=== PATIENT | female | born 1965 | race Caucasian/White ===

== ENCOUNTER 2021-01-03 20:12 | Inpatient (IN) ==
[2021-01-03] MEDS ORDERED: ONDANSETRON INJ 2 MG/ML 2 ML VIAL IV STA (20:31)
[2021-01-03] MEDS ORDERED: KETOROLAC TROMETHAMINE 15 MG/ML VIAL IV STA (20:31)
[2021-01-03] MEDS ORDERED: SODIUM CHLORIDE 0.9% 1000ML 1,000 ML IV ONE (20:31)
[2021-01-03 20:54] LABS: Basophils # (auto) 0.02 K/uL (0-0.2); Basophils % (auto) 0.2 %; Hemoglobin 13.2 g/dL (12.0-16.0); Immature Granulocytes # (auto) 0.03 K/uL (0.00-0.02); Immature Granulocytes % (auto) 0.3 %; Lymphocytes # (auto) 3.54 K/uL (1.2-3.4); Lymphocytes % (auto) 33.8 %; Mean Corpuscular Hemoglobin 28.9 pg (25-34); Mean Corpuscular Volume 87.7 fL (80-100); Mean Platelet Volume 9.6 fL (7.4-10.4); Monocytes % (auto) 8.6 %; Neutrophils # (auto) 5.87 K/uL (1.4-6.5); Neutrophils % (auto) 56.1 %; Platelet Count 384 K/uL (130-400); RDW Coefficient of Variation 14.1 % (11.5-14.5); RDW Standard Deviation 45.3 fL (36.4-46.3); Red Blood Count 4.56 M/uL (4.2-5.4); White Blood Count 10.46 K/uL (4.8-10.8)
[2021-01-03 20:58] LABS: BUN Creatinine Ratio 16.8 (10-20); Calcium 9.4 mg/dl (8.5-10.1); Creatinine Clr Calc Pharmacy 63.7 ml/min; Est GFR (African American) 76.2 ml/min; Est GFR (Non-African American) 65.8 ml/min; Potassium 3.5 mmol/L (3.5-5.1)
[2021-01-03 21:07] LABS: Appearance Urine Cloudy (Clear); Bacteria Urine Automated Negative (Negative); Bilirubin Urine Negative (Negative); Blood Urine 3+ (Negative); Color Urine Red; Glucose Urine UA Negative (Negative); Ketones Urine Negative (Negative); Leukocyte Esterase Urine 3+ (Negative); Nitrite Urine Negative (Negative); Protein Urine 1+ (Negative); Specific Gravity Urine 1.012 (1.000-1.030); Urobilinogen Urine Negative (Negative); WBC Urine Automated >30 /hpf (0-5); pH Urine 6.5 (4.5-7.5)
[2021-01-03 21:22] LABS: Cast Urine Automated 0 /lpf (0-5); RBC Urine Automated >30 /hpf (0-4)
--- NOTE | 2021-01-03 21:29 | CT Scan Report ---
ABDOMEN AND PELVIS CT WITHOUT CONTRAST CT DOSE: 837.49 mGy.cm HISTORY: Acute left flank and left lower quadrant abdominal pain L flank and LLQ pain hx kidney ston es TECHNIQUE: Multiaxial CT images of the abdomen and pelvis were performed without contrast. A dose lo wering technique was utilized adhering to the principles of ALARA. COMPARISON STUDY: None. FINDINGS: Mild bibasilar atelectasis. No pneumatosis or pneumoperitoneum. The imaged inferior cardiac chambers are unremarkable. The unenhanced spleen, pancreas and adrenal glands are unremarkable. Chol ecystectomy. There are a few hypodensities of the liver suggestive of cysts measuring up to 10 mm. There are at least 6 nonobstructing calculi of the right kidney measuring up to 5 mm. No right-sided ureteral calculi or hydronephrosis. Numerous left-sided renal calculi measure up to 6 mm. Mild to mod erate left-sided hydroureteronephrosis secondary to an obstructing 6 x 4 x 6 mm calculus of the left ureter at the level of L3-L4. Urinary bladder and uterus are unremarkable. No abdominal aortic aneury sm or adenopathy. No bowel obstruction or bowel wall thickening. Colonic diverticulosis. No ascites or mesenteric infla mmation. No CT evidence of acute appendicitis. Unremarkable soft tissues. There is no acute fracture. IMPRESSION: 1. Mild to moderate left-sided hydroureteronephrosis secondary to an obstructing 6 mm calculus of the left ureter at the level of L3-L4. 2. Nonobstructing left greater than right nephrolithiasis. 3. Cholecystectomy. ACT 112: Negative or not required by law. The above report was generated using voice recognition software. It may contain grammatical, syntax o r spelling errors. Electronically signed by: Maury Kidd M.D. 01/03/2021 9:27 PM
[2021-01-03] MEDS ORDERED: TAMSULOSIN HCL 0.4 MG CAP PO ONE (22:11)
--- NOTE | 2021-01-03 22:43 | History & Physical Report ---
Date of Service January 03, 2021 Assessment & Plan (1) Hydronephrosis with renal calculous obstruction: Plan: hx recurrent urolithiasis No sepsis for now Situational hypertension GMF Flomax trial IVF Strain urine Urology consult Re: Left renal colic, obstructive uropathy N.p.o. until patient seen by Urology in a.m. anticipation of procedural intervention. Analgesia DVT prophylaxis per Lovenox subcu Full code Patient requesting updates from providers. Mr. Tato Villegas, contact #[phone]. Text document was generated using [employer]ore voice recognition software. It may contain grammatical or spelling errors. Kindly contact undersigned for clarification of any documentation item in question. History of Present Illness Chief Complaint: Left flank pain Primary Care Provider: Dr. Ewa Kevin [facility] ([facility]) History obtained from patient, family, and records. Medical history significant for recurrent urolithiasis, hyperlipidemia, IBS, narcolepsy as per records. Last confinement [facility] for obstructive right ureteral stone March 2020. Outpatient lithotripsy subsequently done following discharge. Kidney stones on the left on plain x-ray noted on outpatient follow-up with her urologist from [place] (Dr. Car) 2 months ago. Patient counseled to anticipate potential obstruction if the 2 stones got stuck together. Patient passing through town today with her family after leaving home at [place], [place] on their way to [place], [place] for a 4-day family vacation when she noted severe achy left flank pain reminiscent of kidney stone pain along with nausea, hematuria symptoms. No fever, no chills. 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 Allergies Allergy/AdvReac Type Severity Reaction Status Date / Time codeine Allergy Severe Hives Verified 01/03/21 20:38 Penicillins Allergy Severe Hives Verified 01/03/21 20:38 morphine AdvReac Intermediate sedation, Verified 01/03/21 22:45 nv oxycodone AdvReac Intermediate nv Verified 01/03/21 22:47 Home Medications Medication Instructions Recorded Confirmed Type calcium citrate 315 mg-vitamin D3 1 tab PO DAILY 01/03/21 01/03/21 History 5 mcg (200 unit) tablet (Calcium Citrate + D) cholecalciferol (vitamin D3) 25 25 mcg PO DAILY 01/03/21 01/03/21 History mcg (1,000 unit) tablet (Vitamin D3) cyanocobalamin (vitamin B-12) 1,000 mcg PO DAILY 01/03/21 01/03/21 History 1,000 mcg tablet (Vitamin B-12) potassium citrate 5 mEq (540 mg) 5 meq PO DAILY 01/03/21 01/03/21 History tablet,extended release pyridoxine (vitamin B6) 100 mg 100 mg PO DAILY 01/03/21 01/03/21 History tablet (Vitamin B-6) Past Med/Surg History Medical History (Updated 01/04/21 @ 01:33 by Hal Ponce) Kidney stone No pertinent family history Surgical History (Updated 01/04/21 @ 01:28 by Hal Ponce) No pertinent past surgical history Social History Smoking Status: Never smoker Hx Alcohol Use: No Hx Substance Use: No Preferred Language: Faroese Communication Ability: Effective Dosier Operator Required: No Beliefs That Will Affect Care: None Current Living Situation: Spouse and Family Other Information That Helps Us Care for You: No Feels Safe at Home: Yes Safety Concerns: Feels Safe At This Time Assistive Devices: Glasses Review of Systems Review of Systems: As per HPI, all 10 systems reviewed, all other ROS negative Physical Exam Physical Exam: GENERAL: uncomfortable, anxious, no respiratory distress SKIN: Normal color, warm HEENT: [place]pect[place]led, [place] palpebral conjunctivae, no ptosis, dry buccal mucosa NECK : Supple, no tenderness CHEST : CTA, no tenderness HEART : RRR, no obvious murmurs ABDOMEN: Some distention, nontender BACK : Minimal left flank tenderness EXTREMITIES : Minimal LE swelling, no LE tenderness, no other conspicuous deformities noted NEUROLOGIC : Coherent, no facial asymmetry, no other gross focality Results & Data Results & Data ([facility]) Vital Signs (Past 12 Hours) Vital Signs Temp Pulse Resp BP Pulse Ox 01/03/21 22:00 76 18 137/75 95 01/03/21 21:30 74 17 121/69 94 01/03/21 21:00 127/78 01/03/21 20:30 82 28 H 160/79 H 96 01/03/21 20:14 36.7 C 88 18 145/70 H 97 Laboratory Results Laboratory Results WBC 10.46 K/uL (4.8-10.8) 01/03/21 20:37 RBC 4.56 M/uL (4.2-5.4) 01/03/21 20:37 Hgb 13.2 g/dL (12.0-16.0) 01/03/21 20:37 Hct 40.0 % (37-47) 01/03/21 20:37 MCV 87.7 fL (80-100) 01/03/21 20:37 MCH 28.9 pg (25-34) 01/03/21 20:37 MCHC 33.0 g/dL (32-36) 01/03/21 20:37 RDW Std Deviation 45.3 fL (36.4-46.3) 01/03/21 20:37 RDW Coeff of Teri 14.1 % (11.5-14.5) 01/03/21 20:37 Plt Count 384 K/uL (130-400) 01/03/21 20:37 MPV 9.6 fL (7.4-10.4) 01/03/21 20:37 Immature Gran % (Auto) 0.3 % 01/03/21 20:37 Neut % (Auto) 56.1 % 01/03/21 20:37 Lymph % (Auto) 33.8 % 01/03/21 20:37 [place] % (Auto) 8.6 % 01/03/21 20:37 Eos % (Auto) 1.0 % 01/03/21 20:37 Baso % (Auto) 0.2 % 01/03/21 20:37 Neut # (Auto) 5.87 K/uL (1.4-6.5) 01/03/21 20:37 Lymph # (Auto) 3.54 K/uL (1.2-3.4) H 01/03/21 20:37 [place] # (Auto) 0.90 K/uL (0.11-0.59) H 01/03/21 20:37 Eos # (Auto) 0.10 K/uL (0-0.5) 01/03/21 20:37 Baso # (Auto) 0.02 K/uL (0-0.2) 01/03/21 20:37 Immature Gran # (Auto) 0.03 K/uL (0.00-0.02) H 01/03/21 20:37 Sodium 140 mmol/L (136-145) 01/03/21 20:37 Potassium 3.5 mmol/L (3.5-5.1) 01/03/21 20:37 Chloride 106 mmol/L (98-107) 01/03/21 20:37 Carbon Dioxide 29 mmol/L (21-32) 01/03/21 20:37 Anion Gap 5.0 (3-11) 01/03/21 20:37 BUN 16 mg/dl (7-18) 01/03/21 20:37 Creatinine 0.97 mg/dl (0.6-1.2) 01/03/21 20:37 Est Cr Clr Drug Dosing 63.7 ml/min 01/03/21 20:37 Est GFR ( Amer) 76.2 ml/min 01/03/21 20:37 Est GFR (Non-Af Amer) 65.8 ml/min 01/03/21 20:37 BUN/Creatinine Ratio 16.8 (10-20) 01/03/21 20:37 Glucose 107 mg/dl (70-99) H 01/03/21 20:37 Calcium 9.4 mg/dl (8.5-10.1) 01/03/21 20:37 Urine Color Red 01/03/21 20:40 Urine Appearance Cloudy (Clear) A 01/03/21 20:40 Urine pH 6.5 (4.5-7.5) 01/03/21 20:40 Ur Specific [place] 1.012 (1.000-1.030) 01/03/21 20:40 Urine Protein 1+ (Negative) H 01/03/21 20:40 Urine Glucose (UA) Negative (Negative) 01/03/21 20:40 Urine Ketones Negative (Negative) 01/03/21 20:40 Urine Blood 3+ (Negative) H 01/03/21 20:40 Urine Nitrite Negative (Negative) 01/03/21 20:40 Urine Bilirubin Negative (Negative) 01/03/21 20:40 Urine Urobilinogen Negative (Negative) 01/03/21 20:40 Ur Leukocyte Esterase 3+ (Negative) H 01/03/21 20:40 Urine WBC (Auto) >30 /hpf (0-5) H 01/03/21 20:40 Urine RBC (Auto) >30 /hpf (0-4) H 01/03/21 20:40 U Hyaline Cast (Auto) 0 /lpf (0-5) 01/03/21 20:40 U Epithel Cells (Auto) 10-20 /lpf (0-5) H 01/03/21 20:40 Urine Bacteria (Auto) Negative (Negative) 01/03/21 20:40 Ur Renal Epithelial Cell Not Reportable 01/03/21 20:40 Urine Yeast Not Reportable 01/03/21 20:40 COVID-19 Eval Order Covid19 at [facility] 01/03/21 22:07 Impressions Abdomen/Pelvis CT 01/03/21 20:[address] WITHOUT CONTRAST CT DOSE: 837.49 mGy.cm HISTORY: Acute left flank and left lower quadrant abdominal pain L flank and LLQ pain hx kidney stones TECHNIQUE: Multiaxial CT images of the abdomen and pelvis were performed without contrast. A dose lowering technique was utilized adhering to the principles of ALARA. COMPARISON STUDY: None. FINDINGS: Mild bibasilar atelectasis. No pneumatosis or pneumoperitoneum. The imaged inferior cardiac chambers are unremarkable. The unenhanced spleen, pancreas and adrenal glands are unremarkable. Cholecystectomy. There are a few hypodensities of the liver suggestive of cysts measuring up to 10 mm. There are at least 6 nonobstructing calculi of the right kidney measuring up to 5 mm. No right-sided ureteral calculi or hydronephrosis. Numerous left-sided renal calculi measure up to 6 mm. Mild to moderate left-sided hydroureteronephrosis secondary to an obstructing 6 x 4 x 6 mm calculus of the left ureter at the level of L3-L4. Urinary bladder and uterus are unremarkable. No abdominal aortic aneurysm or adenopathy. No bowel obstruction or bowel wall thickening. Colonic diverticulosis. No ascites or mesenteric inflammation. No CT evidence of acute appendicitis. Unremarkable soft tissues. There is no acute fracture. IMPRESSION: 1. Mild to moderate left-sided hydroureteronephrosis secondary to an obstructing 6 mm calculus of the left ureter at the level of L3-L4. 2. Nonobstructing left greater than right nephrolithiasis. 3. Cholecystectomy. ACT 112: Negative or not required by law. The above report was generated using voice recognition software. It may contain grammatical, syntax or spelling errors. Electronically signed by: Maury Kidd M.D. 01/03/2021 9:27 PM
[2021-01-03] MEDS ORDERED: PROMETHAZINE HCL 12.5 MG in SODIUM CHLORIDE 0.9% 50 ML IV PRN (22:46)
[2021-01-03] MEDS ORDERED: ACETAMINOPHEN 325 MG TAB PO PRN (22:46)
[2021-01-03] MEDS ORDERED: traMADol HCL 50 MG TABLET PO PRN (22:46)
[2021-01-03] MEDS ORDERED: HYDROmorphone INJ 0.5 MG/0.5 ML SYR IV PRN (22:46)
[2021-01-03 22:47] LABS: Bilirubin Direct 0.2 mg/dl (0-0.2); Bilirubin,Total 1.2 mg/dl (0.2-1); Magnesium 2.3 mg/dl (1.8-2.4); Total Protein 7.6 gm/dl (6.4-8.2)
[2021-01-04] MEDS ORDERED: LORazepam 0.25 MG/0.5 ML VIAL IV PRN (00:48)
--- NOTE | 2021-01-04 01:31 | Emergency Department Note ---
History of Present Illness General Chief Complaint: Kidney Stone Stated Complaint: KIDNEY STONES-ABD PAIN Time Seen by Provider: 01/03/21 20:24 History of Present Illness Provider Complaint: flank pain Onset (ago): 1 day(s) Pain Consistency: constant Location: L flank Radiation: LLQ Severity: severe Maximum Pain Intensity: 10 Current Pain Intensity: 9 Quality: + stabbing and + sharp Relieved By: + nothing Exacerbated By: + nothing Context: + history of similar episodes (History of kidney stones) Associated Symptoms: + nausea, + hematuria and + back pain; no vomiting, no diarrhea, no fever, no chills, no constipation, no dysuria, no hematemesis, no hematochezia, no melena, no anorexia, no syncope, no headache, no neck pain, no chest pain, no weakness, no breathing difficulty and no numbness Related Data Patient Confirmed : No Home Medications Medication Instructions Recorded Confirmed Type calcium citrate 315 mg-vitamin D3 1 tab PO DAILY 01/03/21 01/03/21 History 5 mcg (200 unit) tablet (Calcium Citrate + D) cholecalciferol (vitamin D3) 25 25 mcg PO DAILY 01/03/21 01/03/21 History mcg (1,000 unit) tablet (Vitamin D3) cyanocobalamin (vitamin B-12) 1,000 mcg PO DAILY 01/03/21 01/03/21 History 1,000 mcg tablet (Vitamin B-12) potassium citrate 5 mEq (540 mg) 5 meq PO DAILY 01/03/21 01/03/21 History tablet,extended release pyridoxine (vitamin B6) 100 mg 100 mg PO DAILY 01/03/21 01/03/21 History tablet (Vitamin B-6) Allergies Allergy/AdvReac Type Severity Reaction Status Date / Time codeine Allergy Severe Hives Verified 01/03/21 20:38 Penicillins Allergy Severe Hives Verified 01/03/21 20:38 morphine AdvReac Intermediate sedation, Verified 01/03/21 22:45 nv oxycodone AdvReac Intermediate nv Verified 01/03/21 22:47 Past Med/Surg History Medical History (Updated 01/04/21 @ 01:33 by Hal Ponce) Kidney stone No pertinent family history Surgical History (Updated 01/04/21 @ 01:28 by Hal Ponce) No pertinent past surgical history Social History Smoking Status: Never smoker Hx Alcohol Use: No Hx Substance Use: No Preferred Language: Croatian Communication Ability: Effective 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: No Beliefs That Will Affect Care: None Current Living Situation: Spouse and Family Other Information That Helps Us Care for You: No Feels Safe at Home: Yes Safety Concerns: Feels Safe At This Time Assistive Devices: Glasses Review of Systems A total of 10 systems reviewed and were otherwise negative Physical Exam Vital Signs: Vital Signs - 24 hr 01/03/21 20:14 01/03/21 20:30 01/03/21 21:00 Temperature 36.7 C Temperature Source Temporal Artery Sc an Pulse Rate 88 82 Pulse Rate from Sp O2 Sensor 81 Pulse Rhythm Regular Respiratory Rate 18 28 H Respiratory Effort / Characteristics Non-Labored Sponta neous Respiratory Depth Normal Respiratory Patter n Regular Blood Pressure 145/70 H 160/79 H 127/78 Blood Pressure Paige n 95 106 94 Pulse Oximetry 97 96 Oxygen Delivery Me thod Room Air Sepsis Recent Feve r Within 48 Hours No Sepsis New/Unexpla ined Change in Men poonam Status No Sepsis Action Take n by Nursing No Action Required 01/03/21 21:30 01/03/21 22:00 01/03/21 22:30 Temperature Temperature Source Pulse Rate 74 76 70 Pulse Rate from Sp O2 Sensor 73 76 86 Pulse Rhythm Respiratory Rate 17 18 21 Respiratory Effort / Characteristics Respiratory Depth Respiratory Patter n Blood Pressure 121/69 137/75 129/94 Blood Pressure Paige n 86 95 105 Pulse Oximetry 94 95 95 Oxygen Delivery Me thod Sepsis Recent Feve r Within 48 Hours Sepsis New/Unexpla ined Change in Men poonam Status Sepsis Action Take n by Nursing 01/03/21 23:00 01/03/21 23:30 Temperature Temperature Source Pulse Rate 82 83 Pulse Rate from Sp O2 Sensor Pulse Rhythm Respiratory Rate 22 19 Respiratory Effort / Characteristics Respiratory Depth Respiratory Patter n Blood Pressure 129/72 123/69 Blood Pressure Paige n 91 87 Pulse Oximetry Oxygen Delivery Me thod Sepsis Recent Feve r Within 48 Hours Sepsis New/Unexpla ined Change in Men poonam Status Sepsis Action Take n by Nursing Physical Exam: Physical Exam GENERAL: She is oriented to person, place, and time. She appears well-developed and well-nourished. She does not appear distressed. HENT: Exam performed. -Head: Normocephalic and atraumatic. -Right Ear: External ear normal. No mastoid tenderness. -Left Ear: External ear normal. No mastoid tenderness. -Mouth/Throat: The oropharynx is clear and moist. No trismus in the jaw. No dental abscesses or uvula swelling. No oropharyngeal exudate or tonsillar abscesses. EYES: Conjunctivae and EOM are normal. Pupils are equal, round, and reactive to light. Right eye exhibits no discharge. Left eye exhibits no discharge. No scleral icterus. NECK: Normal range of motion. Neck supple. No JVD present. No spinous process tenderness present. No carotid bruit present. No rigidity. No tracheal deviation and normal range of motion present. No Brudzinski's sign and no Kernig's sign noted. CV: Normal rate, regular rhythm, normal heart sounds and intact distal pulses. There is no peripheral edema. Palpable radial pulses bue. PULM/CHEST: Effort normal and breath sounds normal. No respiratory distress. No stridor. She has no wheezes. She has no rales. -Chest Wall: She exhibits no tenderness. ABD: The abdomen is soft. Bowel sounds are normal. She has no distension. No mass is present. There is tenderness to palpation left lower quadrant. There is no rebound, no guarding, no Eddy's sign and no tenderness at McBurney's point. Rovsig negative. Left-sided CVA tenderness. MUSC/SKEL: Normal range of motion. There is no peripheral edema, tenderness or deformity. LYMPH: No cervical adenopathy. NEURO: She is alert and oriented to person, place, and time. She has normal strength. No cranial nerve deficit or sensory deficit. Coordination and gait normal. GCS eye subscore is 4. GCS verbal subscore is 5. GCS motor subscore is 6. Cerebellar tests wnl. SKIN: Skin is warm and dry. She is not diaphoretic. PSYCH: She has a normal mood and affect. Behavior is normal. Judgment and thought content normal. Course Course 2023: The patient was evaluated in room C12. A complete history and physical exam was performed Cardiac monitoring: An order was placed for continuous cardiac monitoring. The monitor shows a rate of 80 with sinus rhythm 2200: Vital signs stable. Labs showed no leukocytosis. No signs of urinary tract infection. 6 mm kidney stone with hydroureteronephrosis on the left. Patient states she wants to be admitted for pain control and urology evaluation. Patient states she is from out of [facility] and on her way to [place]. [facility]. Administered Medications Discontinued Medications Sodium Chloride (Nss 1000ml) 1,000 mls @ 999 mls/hr IV .Q1H1M ONE Stop: 01/03/21 21:31 Last Infusion: 01/03/21 22:45 Dose: 0 mls/hr Documented by: [id number] Admin: 01/03/21 20:49 Dose: 999 mls/hr Documented by: [id number] Ketorolac Tromethamine (Ketorolac Tromethamine 15 Mg/Ml Vial) 15 mg IV NOW STA Stop: 01/03/21 20:32 Last Admin: 01/03/21 20:50 Dose: 15 mg Documented by: [id number] Ondansetron HCl (Ondansetron Inj 2 Mg/Ml 2 Ml Vial) 4 mg IV NOW STA Stop: 01/03/21 20:32 Last Admin: 01/03/21 20:49 Dose: 4 mg Documented by: [id number] Tamsulosin HCl (Tamsulosin Hcl 0.4 Mg Cap) 0.4 mg PO NOW ONE Stop: 01/03/21 22:12 Last Admin: 01/03/21 22:43 Dose: 0.4 mg Documented by: [id number] Medical Decision Making Laboratory Data Result diagrams: 01/03/21 20:37 01/03/21 20:37 Lab Results 01/03/21 01/03/21 01/03/21 Range/Units 20:37 20:37 20:37 WBC 10.46 (4.8-10.8) K/uL RBC 4.56 (4.2-5.4) M/uL Hgb 13.2 (12.0-16.0) g/dL Hct 40.0 (37-47) % MCV 87.7 (80-100) fL MCH 28.9 (25-34) pg MCHC 33.0 (32-36) g/dL RDW Std Deviation 45.3 (36.4-46.3) fL RDW Coeff of Teri 14.1 (11.5-14.5) % Plt Count 384 (130-400) K/uL MPV 9.6 (7.4-10.4) fL Immature Gran % (Auto) 0.3 % Neut % (Auto) 56.1 % Lymph % (Auto) 33.8 % Coke % (Auto) 8.6 % Eos % (Auto) 1.0 % Baso % (Auto) 0.2 % Neut # (Auto) 5.87 (1.4-6.5) K/uL Lymph # (Auto) 3.54 H (1.2-3.4) K/uL Coke # (Auto) 0.90 H (0.11-0.59) K/uL Eos # (Auto) 0.10 (0-0.5) K/uL Baso # (Auto) 0.02 (0-0.2) K/uL Immature Gran # (Auto) 0.03 H (0.00-0.02) K/uL Sodium 140 (136-145) mmol/L Potassium 3.5 (3.5-5.1) mmol/L Chloride 106 (98-107) mmol/L Carbon Dioxide 29 (21-32) mmol/L Anion Gap 5.0 (3-11) BUN 16 (7-18) mg/dl Creatinine 0.97 (0.6-1.2) mg/dl Est Cr Clr Drug Dosing 63.7 ml/min Est GFR ( Amer) 76.2 ml/min Est GFR (Non-Af Amer) 65.8 ml/min BUN/Creatinine Ratio 16.8 (10-20) Glucose 107 H (70-99) mg/dl Calcium 9.4 (8.5-10.1) mg/dl Magnesium 2.3 (1.8-2.4) mg/dl Total Bilirubin 1.2 H (0.2-1) mg/dl Direct Bilirubin 0.2 (0-0.2) mg/dl AST 29 (15-37) U/L ALT 42 (12-78) U/L Alkaline Phosphatase 106 (45-117) U/L Total Protein 7.6 (6.4-8.2) gm/dl Albumin 4.0 (3.4-5.0) gm/dl Urine Color Urine Appearance (Clear) Urine pH (4.5-7.5) Ur Specific [place] (1.000-1.030) Urine Protein (Negative) Urine Glucose (UA) (Negative) Urine Ketones (Negative) Urine Blood (Negative) Urine Nitrite (Negative) Urine Bilirubin (Negative) Urine Urobilinogen (Negative) Ur Leukocyte Esterase (Negative) Urine WBC (Auto) (0-5) /hpf Urine RBC (Auto) (0-4) /hpf U Hyaline Cast (Auto) (0-5) /lpf U Epithel Cells (Auto) (0-5) /lpf Urine Bacteria (Auto) (Negative) Ur Renal Epithelial Cell Urine Yeast COVID-19 Eval Order SARS-CoV-2 (PCR) (Negative) 01/03/21 01/03/21 01/03/21 Range/Units 20:40 22:07 22:07 WBC (4.8-10.8) K/uL RBC (4.2-5.4) M/uL Hgb (12.0-16.0) g/dL Hct (37-47) % MCV (80-100) fL MCH (25-34) pg MCHC (32-36) g/dL RDW Std Deviation (36.4-46.3) fL RDW Coeff of Teri (11.5-14.5) % Plt Count (130-400) K/uL MPV (7.4-10.4) fL Immature Gran % (Auto) % Neut % (Auto) % Lymph % (Auto) % Coke % (Auto) % Eos % (Auto) % Baso % (Auto) % Neut # (Auto) (1.4-6.5) K/uL Lymph # (Auto) (1.2-3.4) K/uL Coke # (Auto) (0.11-0.59) K/uL Eos # (Auto) (0-0.5) K/uL Baso # (Auto) (0-0.2) K/uL Immature Gran # (Auto) (0.00-0.02) K/uL Sodium (136-145) mmol/L Potassium (3.5-5.1) mmol/L Chloride (98-107) mmol/L Carbon Dioxide (21-32) mmol/L Anion Gap (3-11) BUN (7-18) mg/dl Creatinine (0.6-1.2) mg/dl Est Cr Clr Drug Dosing ml/min Est GFR ( Amer) ml/min Est GFR (Non-Af Amer) ml/min BUN/Creatinine Ratio (10-20) Glucose (70-99) mg/dl Calcium (8.5-10.1) mg/dl Magnesium (1.8-2.4) mg/dl Total Bilirubin (0.2-1) mg/dl Direct Bilirubin (0-0.2) mg/dl AST (15-37) U/L ALT (12-78) U/L Alkaline Phosphatase (45-117) U/L Total Protein (6.4-8.2) gm/dl Albumin (3.4-5.0) gm/dl Urine Color Red Urine Appearance Cloudy A (Clear) Urine pH 6.5 (4.5-7.5) Ur Specific [place] 1.012 (1.000-1.030) Urine Protein 1+ H (Negative) Urine Glucose (UA) Negative (Negative) Urine Ketones Negative (Negative) Urine Blood 3+ H (Negative) Urine Nitrite Negative (Negative) Urine Bilirubin Negative (Negative) Urine Urobilinogen Negative (Negative) Ur Leukocyte Esterase 3+ H (Negative) Urine WBC (Auto) >30 H (0-5) /hpf Urine RBC (Auto) >30 H (0-4) /hpf U Hyaline Cast (Auto) 0 (0-5) /lpf U Epithel Cells (Auto) 10-20 H (0-5) /lpf Urine Bacteria (Auto) Negative (Negative) Ur Renal Epithelial Cell Not Reportable Urine Yeast Not Reportable COVID-19 Eval Order Covid19 at [facility] SARS-CoV-2 (PCR) NEGATIVE (Negative) Imaging Data Radiologist's Impression: Abdomen/Pelvis CT 01/03/21 20:[address] WITHOUT CONTRAST CT DOSE: 837.49 mGy.cm HISTORY: Acute left flank and left lower quadrant abdominal pain L flank and LLQ pain hx kidney stones TECHNIQUE: Multiaxial CT images of the abdomen and pelvis were performed without contrast. A dose lowering technique was utilized adhering to the principles of ALARA. COMPARISON STUDY: None. FINDINGS: Mild bibasilar atelectasis. No pneumatosis or pneumoperitoneum. The imaged inferior cardiac chambers are unremarkable. The unenhanced spleen, pancre as and adrenal glands are unremarkable. Cholecystectomy. There are a few hypodensities of the liver suggestive of cysts measuring up to 10 mm. There are at least 6 nonobstructing calculi of the right kidney measuring up to 5 mm. No right-sided ureteral calculi or hydronephrosis. Numerous left-sided renal calculi measure up to 6 mm. Mild to moderate left-sided hydroureteronephrosis secondary to an obstructing 6 x 4 x 6 mm calculus of the left ureter at the level of L3-L4. Urinary bladder and uterus are unremarkable. No abdominal aortic aneurysm or adenopathy. No bowel obstruction or bowel wall thickening. Colonic diverticulosis. No ascites or mesenteric inflammation. No CT evidence of acute appendicitis. Unremarkable soft tissues. There is no acute fracture. IMPRESSION: 1. Mild to moderate left-sided hydroureteronephrosis secondary to an obstructing 6 mm calculus of the left ureter at the level of L3-L4. 2. Nonobstructing left greater than right nephrolithiasis. 3. Cholecystectomy. ACT 112: Negative or not required by law. The above report was generated using voice recognition software. It may contain grammatical, syntax or spelling errors. Electronically signed by: Maury Kidd M.D. 01/03/2021 9:27 PM MDM Narrative Vital signs stable. Labs showed no leukocytosis. No signs of urinary tract infection. 6 mm kidney stone with hydroureteronephrosis on the left. Patient states she wants to be admitted for pain control and urology evaluation. Patient states she is from out of town and on her way to [place]. [facility] Impression & Plan Hydronephrosis with renal calculous obstruction Discharge Plan Visit Data Chief Complaint: Kidney Stone Stated Complaint: KIDNEY STONES-ABD PAIN Discharge Problem: Hydronephrosis with renal calculous obstruction Patient Disposition: Admitted As Inpatient Discharge Instructions Interventions: ED Discharge Assessment Last Done: 01/04/21 00:22
[2021-01-04] MEDS: POTASSIUM CHLORIDE 40 MEQ in LACTATED RINGER'S 1,000 ML IV SCH ×2 (02:02→12:50)
[2021-01-04] MEDS ORDERED: CIPROFLOXACIN / D5W 400 MG/200 ML BAG IV SCH (06:00)
[2021-01-04] MEDS ORDERED: ENOXAPARIN INJ 30 MG/0.3 ML SYR SQ SCH (09:00)
[2021-01-04] MEDS ORDERED: POTASSIUM CHLORIDE 10 MEQ TABCR PO SCH (09:00)
[2021-01-04] MEDS ORDERED: CYANOCOBALAMIN 500 MCG TABLET (VITAMIN B-12) PO SCH (09:00)
--- NOTE | 2021-01-04 09:44 | Urology Consultation ---
Date of Consultation January 04, 2021 Assessment & Plan (1) Hydronephrosis with renal calculous obstruction: (2) Kidney stone: 55-year-old female with an obstructing left ureteral calculus and severe symptoms Plan for cystoscopy left ureteral stent placement I offered observation, however she is traveling through the area and will not be able to return home for 1 week She would prefer a stent to temporize her symptoms Likely can be discharged home after the stent We will cover with Cipro at the time of surgery History of Present Illness Attending Physician: Gustavo Juan MD History of Present Illness 55-year-old female who was traveling through the area and started to experience severe left flank pain Long history of kidney stones, follows with a urologist in the [facility] Has had prior surgery on multiple occasions Symptoms currently are similar to past experiences CT on arrival showing a 6 mm left mid ureteral calculus with numerous left renal calculi as well as smaller right renal calculi Afebrile No severe leukocytosis Creatinine appropriate Still symptomatic Allergies Allergy/AdvReac Type Severity Reaction Status Date / Time codeine Allergy Severe Hives Verified 01/03/21 20:38 Penicillins Allergy Severe Hives Verified 01/03/21 20:38 morphine AdvReac Intermediate sedation, Verified 01/03/21 22:45 nv oxycodone AdvReac Intermediate nv Verified 01/03/21 22:47 Home Medications Medication Instructions Recorded Confirmed Type calcium citrate 315 mg-vitamin D3 1 tab PO DAILY 01/03/21 01/03/21 History 5 mcg (200 unit) tablet (Calcium Citrate + D) cholecalciferol (vitamin D3) 25 25 mcg PO DAILY 01/03/21 01/03/21 History mcg (1,000 unit) tablet (Vitamin D3) cyanocobalamin (vitamin B-12) 1,000 mcg PO DAILY 01/03/21 01/03/21 History 1,000 mcg tablet (Vitamin B-12) potassium citrate 5 mEq (540 mg) 5 meq PO DAILY 01/03/21 01/03/21 History tablet,extended release pyridoxine (vitamin B6) 100 mg 100 mg PO DAILY 01/03/21 01/03/21 History tablet (Vitamin B-6) Patient History Medical History Kidney stone No pertinent family history Surgical History (Updated 01/04/21 @ 09:43 by Alfonso Laureano MD) H/O lithotripsy No pertinent past surgical history Social History Smoking Status: Never smoker Hx Alcohol Use: No Hx Substance Use: No Preferred Language: Indian Communication Ability: Effective 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 Beliefs That Will Affect Care: None Current Living Situation: Spouse and Family Other Information That Helps Us Care for You: No Feels Safe at Home: Yes Safety Concerns: Feels Safe At This Time Assistive Devices: None Review of Systems Constitutional: no fever, no chills and no fatigue Eyes: no worsening vision Ear, Nose, Mouth, Throat: no facial pain and no pain with swallowing Respiratory: no cough and no dyspnea Cardiovascular: no chest pain and no palpitations Gastrointestinal: + abdominal pain, + nausea and + vomiting Genitourinary: no dysuria, no difficulty urinating, no urinary frequency and no hematuria Musculoskeletal: no back pain Integumentary: no rash and no urticaria Neurologic: no gait abnormality and no unsteadiness Psychiatric: no behavioral changes and no depression Endocrine: no fatigue Physical Exam Constitutional: well developed and well nourished Neck: neck nontender Respiratory: normal respiratory effort; no respiratory distress and does not use accessory muscles Cardiovascular: Rate/Rhythm: regular rate Vessels: radial pulses present Extremities: no edema Gastrointestinal (Abdomen): Inspection/Auscultation: abdomen normal to inspection Percussion/Palpation: abdomen soft; abdomen nontender and no guarding Musculoskeletal: Head/Neck/Chest: normocephalic and head atraumatic Extremities: extremities normal to inspection Skin: no rashes and no lesions Trauma: no evidence of skin trauma Neurologic: awake; not obtunded Speech / Cognition: normal speech Motor/Sensory: no tremor Psychiatric: Orientation: alert and oriented x 3 Lymphatic: no lymphadenopathy Results & Data ([facility]) Vital Signs (Past 12 Hours) Vital Signs Temp Pulse Pulse Resp BP BP Pulse Ox 01/04/21 07:32 36.4 C L 81 18 106/63 94 01/04/21 00:50 36.5 C 14 120/75 97 01/04/21 00:00 79 15 120/74 01/03/21 23:30 83 19 123/69 01/03/21 23:00 82 22 129/72 01/03/21 22:30 70 21 129/94 95 01/03/21 22:00 76 18 137/75 95 PG Care Time/CCT Total # of Minutes Spent Total Time Spent with Patient: Total time spent is greater than 50% in coordination of care (as documented) at patient's floor/unit and/or counseling patient: Coding Level of Care Code 40010 Inpt Consult Level 4 Diagnoses Hydronephrosis with renal calculous obstruction N13.2 Kidney stone N20.0
--- NOTE | 2021-01-04 10:01 | Anesthesiology Consultation ---
Date of Service January 04, 2021 Assessment & Plan (1) Encounter for pre-operative examination: Chart Review Chart Review: Acceptable Risk for Surgery History Surgery Operation Date: 01/04/21 11:00 Proposed Procedures p Ureteral Stent Insertion/Removal - Alfonso Laureano MD Height/Weight Height: 5 ft 7 in Weight: 73.3 kg Allergies Allergy/AdvReac Type Severity Reaction Status Date / Time codeine Allergy Severe Hives Verified 01/03/21 20:38 Penicillins Allergy Severe Hives Verified 01/03/21 20:38 morphine AdvReac Intermediate sedation, Verified 01/03/21 22:45 nv oxycodone AdvReac Intermediate nv Verified 01/03/21 22:47 Medications Home Medications Medication Instructions Recorded Confirmed Last Taken calcium citrate 315 mg-vitamin D3 1 tab PO DAILY 01/03/21 01/03/21 Unknown 5 mcg (200 unit) tablet (Calcium Citrate + D) cholecalciferol (vitamin D3) 25 25 mcg PO DAILY 01/03/21 01/03/21 Unknown mcg (1,000 unit) tablet (Vitamin D3) cyanocobalamin (vitamin B-12) 1,000 mcg PO DAILY 01/03/21 01/03/21 Unknown 1,000 mcg tablet (Vitamin B-12) potassium citrate 5 mEq (540 mg) 5 meq PO DAILY 01/03/21 01/03/21 Unknown tablet,extended release pyridoxine (vitamin B6) 100 mg 100 mg PO DAILY 01/03/21 01/03/21 Unknown tablet (Vitamin B-6) Active Medications Generic Name Dose Route Start Last Admin Trade Name Freq PRN Reason Stop Dose Admin Acetaminophen 650 mg 01/03/21 22:46 01/04/21 07:46 Acetaminophen 325 Mg Tab PO 02/02/21 22:45 650 mg Q6H PRN Administration Fever/pain Cyanocobalamin 1,000 mcg 01/04/21 09:00 01/04/21 07:46 Cyanocobalamin 500 Mcg Tablet (Vitamin B-12) PO 02/03/21 08:59 1,000 mcg DAILY LIA Administration Enoxaparin Sodium 30 mg 01/04/21 09:00 01/04/21 07:47 Enoxaparin Inj 30 Mg/0.3 Ml Syr SQ 02/03/21 08:59 Not Given QAM LIA Potassium Chloride 40 meq/ 1,020 mls @ 100 mls/hr 01/04/21 00:48 01/04/21 02:02 Lactated Ringer's IV 02/03/21 00:47 100 mls/hr .[id number] LIA Administration Potassium Chloride 5 meq 01/04/21 09:00 01/04/21 07:45 Potassium Chloride 10 Meq Tabcr PO 02/03/21 08:59 5 meq DAILY LIA Administration Past Medical History Medical History (Updated 01/04/21 @ 10:01 by Zay George MD) Kidney stone Past Family History no pertinent family history Past Surgical History Surgical History H/O lithotripsy No pertinent past surgical history Social History Smoking Status: Never smoker Hx Alcohol Use: No Hx Substance Use: No substance use type: does not use Physical Exam Vital Signs Last Vital Signs Temp 36.4 C L 01/04/21 07:32 Pulse 81 01/04/21 07:32 Resp 18 01/04/21 07:32 BP 106/63 01/04/21 07:32 Pulse Ox 94 01/04/21 07:32 Testing Laboratory Results 01/03/21 20:37 01/03/21 20:37 Urine Color Red 01/03/21 20:40 Urine Appearance Cloudy (Clear) A 01/03/21 20:40 Urine pH 6.5 (4.5-7.5) 01/03/21 20:40 Ur Specific [place] 1.012 (1.000-1.030) 01/03/21 20:40 Urine Protein 1+ (Negative) H 01/03/21 20:40 Urine Glucose (UA) Negative (Negative) 01/03/21 20:40 Urine Ketones Negative (Negative) 01/03/21 20:40 Urine Nitrite Negative (Negative) 01/03/21 20:40 Ur Leukocyte Esterase 3+ (Negative) H 01/03/21 20:40 Urine WBC (Auto) >30 /hpf (0-5) H 01/03/21 20:40 Urine RBC (Auto) >30 /hpf (0-4) H 01/03/21 20:40 U Hyaline Cast (Auto) 0 /lpf (0-5) 01/03/21 20:40 U Epithel Cells (Auto) 10-20 /lpf (0-5) H 01/03/21 20:40 Urine Bacteria (Auto) Negative (Negative) 01/03/21 20:40
[2021-01-04] MEDS ORDERED: LIDOCAINE 2% 2 ML VIAL/AMP(20MG/ML) INFIL ONE (10:22)
[2021-01-04] MEDS ORDERED: PROPOFOL IV EMULSION 10 MG/ML 20 ML VIAL IV ONE (10:22)
[2021-01-04] MEDS ORDERED: fentaNYL citrate 100 MCG/2 ML VIAL ONE (10:23)
[2021-01-04] MEDS ORDERED: MIDAZOLAM HCL 1 MG/ML 2ML VIAL ONE (10:23)
[2021-01-04] MEDS ORDERED: ATROPINE SULFATE 0.1 MG/ML 10ML SYR IV PRN (10:46)
[2021-01-04] MEDS ORDERED: fentaNYL citrate 100 MCG/2 ML VIAL IV PRN (10:46)
[2021-01-04] MEDS ORDERED: ONDANSETRON INJ 2 MG/ML 2 ML VIAL IV PRN (10:46)
[2021-01-04] MEDS ORDERED: KETOROLAC 30 MG/ML VIAL ONE (11:08)
[2021-01-04] MEDS ORDERED: ONDANSETRON INJ 2 MG/ML 2 ML VIAL ONE (11:08)
--- NOTE | 2021-01-04 11:13 | Operative Report ---
PG Post Operative Report Pre & Post Diagnosis Operation Date: 01/04/21 11:00 Pre-Op Diagnosis: Hydronephrosis with renal calculous obstruction Post-Op Diagnosis: Hydronephrosis with renal calculous obstruction I identified the patient and participated in the time-out.: Yes Procedure Operation Date: 01/04/21 11:00 Actual Procedures p Ureteral Stent Insertion, Left(Left) - Alfonso Laureano MD Surgeon Sang Laureano MD Casting Room Helper none Estimated Blood Loss 0 Findings Consistent with Post-Op Diagnosis Specimens none Description of Procedure The patient was identified in the preoperative holding area, appropriate informed consents were reviewed and completed and the patient was transferred to the operative suite. Upon arrival, appropriate antibiotics and anesthesia were administered and the patient was placed in dorsal lithotomy position and prepped and draped in sterile fashion. To begin the case to pass a 22 [place] cystoscope with 30 degree lens. Inspection revealed a healthy-appearing bladder. The left UO was identified and cannulated with a sensor wire. Wire advanced the kidney without difficulty. I began to place a 6 [place] by 24 cm double-J ureteral stent. First the started to curl in the bladder and took a bit of manipulation to position it appropriately but I ultimately saw a good curl in the kidney as well as the bladder. Bladder was decompressed and the case was concluded. There were no complications. She tolerated the procedure very well. I attest to the content of the Intraoperative Record and any orders documented therein. Any exceptions are noted below.
--- NOTE | 2021-01-04 11:45 | Anesthesiology Progress Note ---
Date of Service January 04, 2021 Anesthesia Post Procedure Vital Signs Vital Signs: Temp Pulse Pulse Pulse Resp BP BP 01/04/21 11:35 36.7 C 72 17 105/64 01/04/21 11:25 83 15 114/66 01/04/21 11:17 36.5 C 85 16 114/67 01/04/21 07:32 36.4 C L 81 18 106/63 01/04/21 00:50 36.5 C 14 120/75 01/04/21 00:00 79 15 120/74 01/03/21 23:30 83 19 123/69 01/03/21 23:00 82 22 129/72 01/03/21 22:30 70 21 129/94 01/03/21 22:00 76 18 137/75 01/03/21 21:30 74 17 121/69 01/03/21 21:00 127/78 01/03/21 20:30 82 28 H 160/79 H 01/03/21 20:14 36.7 C 88 18 145/70 H Pulse Ox 01/04/21 11:35 95 01/04/21 11:25 96 01/04/21 11:17 95 01/04/21 07:32 94 01/04/21 00:50 97 01/04/21 00:00 01/03/21 23:30 01/03/21 23:00 01/03/21 22:30 95 01/03/21 22:00 95 01/03/21 21:30 94 01/03/21 21:00 01/03/21 20:30 96 01/03/21 20:14 97 Pain Intensity Left Flank: Pain Intensity: 3 Head: Pain Intensity: 10 Transfer of Care Handoff Completed per policy Notes Mental Status: alert / awake / arousable Patient Amnestic to Procedure: Yes Nausea / Vomiting: adequately controlled Pain: adequately controlled Airway Patency, RR, SpO2: stable & adequate BP & HR: stable & adequate Hydration State: stable & adequate Anesthetic Complications: no major complications apparent
--- NOTE | 2021-01-04 11:55 | Fluoroscopy Report ---
FL retrograde includes kub CLINICAL HISTORY: Left ureteral stent placement. COMPARISON STUDY: None. FLUOROSCOPY TIME: 11.8 seconds.. FINDINGS: Single fluoroscopic spot image of the abdomen demonstrates a left ureteral stent. Only the proximal portion of the stent is identified and appears in good position. IMPRESSION: Fluoroscopy provided for left ureteral stent placement. ACT 112: Negative or not required by law. Electronically signed by: Bakari Wade M.D. 01/04/2021 11:54 AM
--- NOTE | 2021-01-04 18:45 | Discharge Summary ---
Date of Service January 04, 2021 Admission HPI Per Admitting Provider History obtained from patient, family, and records. Medical history significant for recurrent urolithiasis, hyperlipidemia, IBS, narcolepsy as per records. Last confinement [facility] for obstructive right ureteral stone March 2020. Outpatient lithotripsy subsequently done following discharge. Kidney stones on the left on plain x-ray noted on outpatient follow-up with her urologist from [facility] (Dr. Car) 2 months ago. Patient counseled to anticipate potential obstruction if the 2 stones got stuck together. Patient passing through town today with her family after leaving home at [place], [place] on their way to [place], [place] for a 4-day family vacation when she noted severe achy left flank pain reminiscent of kidney stone pain along with nausea, hematuria symptoms. No fever, no chills. 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 Admission Exam Per Admitting Provider GENERAL: uncomfortable, anxious, no respiratory distress SKIN: Normal color, warm HEENT: Bespectacled, [place] palpebral conjunctivae, no ptosis, dry buccal mucosa NECK : Supple, no tenderness CHEST : CTA, no tenderness HEART : RRR, no obvious murmurs ABDOMEN: Some distention, nontender BACK : Minimal left flank tenderness EXTREMITIES : Minimal LE swelling, no LE tenderness, no other conspicuous deformities noted NEUROLOGIC : Coherent, no facial asymmetry, no other gross focality Principal Diagnosis Hydronephrosis with renal calculus obstruction x Lt Pyuria Discharge Exam GENERAL: Alert and oriented x3. NAD, on RA. HEENT: No pallor, no icterus. Pupils equal, round and reactive to light. Oral mucosa moist. NECK: No JVD, no neck masses. HEART: S1 and S2 heard. Regular rate and rhythm. No murmur, no gallop. RESPIRATORY SYSTEM: Normal AP diameter. No accessory muscle use. No wheezing, no crackles. ABDOMEN: Soft, bowel sounds present, nontender, no distention. CENTRAL NERVOUS SYSTEM: Alert and oriented x3. No facial droop. Speech is clear. Obeys simple commands. Moves extremities. EXTREMITIES: No edema, no erythema seen. Discharge Data Allergies Allergy/AdvReac Type Severity Reaction Status Date / Time codeine Allergy Severe Hives Verified 01/03/21 20:38 Penicillins Allergy Severe Hives Verified 01/03/21 20:38 morphine AdvReac Intermediate sedation, Verified 01/03/21 22:45 nv oxycodone AdvReac Intermediate nv Verified 01/03/21 22:47 Consultations 01/03/21 21:57 ED Decision to Admit Stat 01/04/21 00:48 Consult Urology Routine Procedures Performed Operation Date: 01/04/21 11:00 Actual Procedures p Ureteral Stent Insertion, Left(Left) - Alfonso Laureano MD Ordered Studies 01/03/21 20:31 CT abd pelvis wo con Stat 01/04/21 [place] retrograde includes kub Routine Hospital Course (1) Hydronephrosis with renal calculous obstruction: 55-year-old lady with history of recurrent urolithiasis presented 01/03 with acute left flank pain with no sepsis features. Urology was consulted and see got stent placed on 01/04 on left side. Patient states resolving pain. She received ciprofloxacin during the procedure. Patient insisted on going home rather than being kept for observation for 1 more day. She was traveling and she had acute pain and hence she had to come to this hospital. She wanted to go back to her hometown for family reasons. Since she had pyuria in urinalysis, she will be discharged with antibiotics. She also has pain medication and tamsulosin added to her prescription. Patient updated about the plan of care and she was understanding and agreeable to it. Patient is to follow-up with her PCP and neurology within 1 week's time. Patient understands this. Following instructions were conveyed to the patient at the time of discharge: Take medication as prescribed. F/U with your PCP in a week's time. F/U with your Urology in a week's time. Total Time Total Time Spent Total Time Spent (In Minutes): 45 Discharge Plan Discharge Items Patient Disposition: Home - Self-Care Reason For Visit: OBS UROPATHY Discharge Diagnosis: Hydronephrosis with renal calculus obstruction x Lt Pyuria Activity: Resume your previous activity Non-emergency contact: Primary Care Provider Call non-emergency contact if: you have any medication questions, your symptoms worsen, your pain is not controlled and your pain is worsening Follow-up/Referrals: PCP,NO [Primary Care Provider] - Diet: Regular Addtl Attending Provider Instructions: Take medication as prescribed. F/U with your PCP in a week's time. F/U with your Urology in a week's time. Pending Studies at Discharge: Yes Studies:: Urine Culture Stand-Alone Forms: [facility], Smoking Cessation Medications and DC Order Prescriptions: New acetaminophen 325 mg Tablet 650 mg PO Q6H PRN (Reason: pain (scale score 4-6)) 7 Days Qty: 56 RF: 0 tamsulosin 0.4 mg Capsule 0.4 mg PO HS 30 Days Qty: 30 RF: 0 ciprofloxacin HCl 500 mg tablet 500 mg PO BID 7 Days Qty: 14 RF: 0 tramadol 50 mg tablet 50 mg PO Q6H 3 Days Qty: 6 RF: 0 Continued cyanocobalamin (vitamin B-12) [Vitamin B-12] 1,000 mcg Tablet 1,000 mcg PO DAILY RF: 0 pyridoxine (vitamin B6) [Vitamin B-6] 100 mg Tablet 100 mg PO DAILY RF: 0 potassium citrate 5 mEq (540 mg) Tablet Extended Release 5 meq PO DAILY RF: 0 calcium citrate-vitamin D3 [Calcium Citrate + D] 315 mg-5 mcg (200 unit) Tablet 1 tab PO DAILY RF: 0 cholecalciferol (vitamin D3) [Vitamin D3] 25 mcg (1,000 unit) Tablet 25 mcg PO DAILY RF: 0 Discharge Orders: Discharge Order (Routine); Ordered 01/04/21 Ordered By: Gustavo Juan Admission Data Admit Date/Time: 01/03/21 23:37 Attending Provider: Gustavo Juan Admit Provider: Hossein Alamo Primary Care Provider: PCP,NO Other Providers: Hossein Alamo ; Bartolo Mayfield ; David Friedman ; Alfonso Laureano ; Krystle Mccain ; Gordy Palacios ; Jessie Trevino ; Octavia Novoa ; Ewa Burr ; Salvador Akins ; Lexx Whitman ; Caitlin Antunez ; Diana Burr Other Interventions: Discharge Summary Assessment (RN) Last Done: 01/04/21 17:24
[2021-01-04] MEDS ORDERED: TAMSULOSIN HCL 0.4 MG CAP PO SCH (21:00)
== END 2021-01-04 18:13 | disposition home or self-care (01) | DRG 661 ==
LOC: ED 20:12 → 3E 23:37
DX: Z87.891 Personal history of nicotine dependence; N13.2 Hydronephrosis with renal and ureteral calculous obstruction; Z82.49 Family history of ischemic heart disease and other diseases of the circulatory system; Z90.49 Acquired absence of other specified parts of digestive tract; Z88.5 Allergy status to narcotic agent